=== PATIENT | male | born 1965 | race Two or more races ===

== ENCOUNTER 2018-10-10 12:06 | Day surgery (SDC) | payer OTHER, BC ==
[2018-10-10] MEDS ORDERED: PROPOFOL 20 ML (16:51)
[2018-10-10] MEDS ORDERED: LIDOCAINE 2% (SDV) 5 ML INJ (16:51)
== END 2018-10-10 20:20 | disposition home or self-care (01) ==
LOC: GIL 12:06
DX: Z12.11 Encounter for screening for malignant neoplasm of colon (principal); D12.5 Benign neoplasm of sigmoid colon; D12.8 Benign neoplasm of rectum; D12.2 Benign neoplasm of ascending colon
CPT/HCPCS: 45380; 88305